=== PATIENT | female | born 1950 | race Caucasian/White ===

== ENCOUNTER 2018-04-07 12:50 | Inpatient (IN) | payer OTHER ==
[2018-04-07] MEDS: SOD CHLORIDE 0.9% 1,000 ML IV (13:37)
[2018-04-07] MEDS: ATROPINE 1 MG/10 ML SYRINGE IV (13:37)
[2018-04-07] MEDS: ASPIRIN 81 MG TAB PO (13:39)
[2018-04-07 13:40] LABS: ADD MAN DIFF? NO
[2018-04-07 13:44] LABS: WHITE BLOOD COUNT 7.1 10^3/ul (4.8-10.8)
[2018-04-07 13:44] LABS: BASOPHIL # 0.1 10^3/ul (0.0-0.1); BASOPHILS % 0.7 % (0.0-2.0); EOSINOPHILS # 0.2 10^3/ul (0.0-0.5); EOSINOPHILS % 3.2 % (0.0-7.0); HEMATOCRIT 42.7 % (37.0-47.0); HEMOGLOBIN 13.7 g/dl (12.0-16.0); LYMPHOCYTES # 3.9 10^3/ul (0.8-2.9); LYMPHOCYTES % 55.1 % (15.0-51.0); MEAN CORPUSCULAR HEMOGLOBIN 29.3 pg (29.0-33.0); MEAN CORPUSCULAR HGB CONC 32.1 g/dl (32.0-37.0); MEAN CORPUSCULAR VOLUME 91.2 fl (82.0-101.0); MEAN PLATELET VOLUME 9.5 fl (7.4-10.4); MONOCYTE # 0.6 10^3/ul (0.3-0.9); MONOCYTES % 8.2 % (0.0-11.0); NEUTROPHIL # 2.3 10^3/ul (1.6-7.5); NEUTROPHILS % 32.7 % (39.0-77.0); PLATELET COUNT 220 10^3/UL (140-415); RED BLOOD COUNT 4.68 10^6/ul (4.20-5.40); RED CELL DISTRIBUTION WIDTH 13.3 % (11.5-14.5)
[2018-04-07 14:03] LABS: INR 0.96; PROTIME 12.9 Sec (11.9-14.9)
[2018-04-07 14:04] LABS: PARTIAL THROMBOPLASTIN TIME 30.9 Sec (23.0-35.0)
[2018-04-07 14:22] LABS: ALANINE AMINOTRANSFERASE 20 IU/L (13-69); ALBUMIN 4.2 g/dl (3.3-4.9); ALBUMIN/GLOBULIN RATIO 1.27; ALKALINE PHOSPHATASE 121 IU/L (42-121); ANION GAP 8 (5-13); ASPARTATE AMINO TRANSFERASE 40 IU/L (15-46); BILIRUBIN,INDIRECT 1.1 mg/dl (0-1.1); BILIRUBIN,TOTAL 1.1 mg/dl (0.2-1.3); BLOOD UREA NITROGEN 15 mg/dl (7-20); CALCIUM 9.1 mg/dl (8.4-10.2); CARBON DIOXIDE 27 mmol/L (21-31); CHLORIDE 108 mmol/L (97-110); Estimated GFR > 60 mL/min (>60); GLUCOSE 94 mg/dl (70-220); LIPASE 99 U/L (23-300); SODIUM 143 mmol/L (135-144); TOTAL PROTEIN 7.5 g/dl (6.1-8.1)
[2018-04-07 14:31] LABS: B-TYPE NATRIURETIC PEPTIDE 1800 PG/ML (0-125)
[2018-04-07 14:34] LABS: TROPONIN-I < 0.012 ng/ml (0.000-0.120)
[2018-04-07] MEDS: KETOROLAC 15 MG INJ IV (14:34)
[2018-04-07] MEDS ORDERED: NACL 0.9% 3 ML SYG IV (15:30)
[2018-04-07] MEDS ORDERED: ONDANSETRON 4 MG INJ IV (15:30)
[2018-04-07] MEDS ORDERED: DOPamine-D5W 1.6 MG/ML 250 ML IV (16:00)
[2018-04-07 18:03] LABS: FREE T4 (FREE THYROXINE) 1.09 ng/dl (0.78-2.44)
[2018-04-07] MEDS ORDERED: HEPARIN 5,000 UNIT/0.5 ML VIAL (21:01)
[2018-04-07] MEDS: ATORVASTATIN 10 MG TAB PO (21:04)
[2018-04-07] MEDS: FAMOTIDINE 20 MG TAB PO (21:04)
[2018-04-07 21:07] LABS: TROPONIN-I 0.013 ng/ml (0.000-0.120)
[2018-04-07] MEDS: HEPARIN 5,000 UNIT/1 ML VIAL SC (21:48)
[2018-04-08 01:20] LABS: TROPONIN-I < 0.012 ng/ml (0.000-0.120)
[2018-04-08] MEDS ORDERED: HEPARIN 5,000 UNIT/0.5 ML VIAL ×2 (04:53→20:05)
[2018-04-08 05:22] LABS: ADD MAN DIFF? NO
[2018-04-08 05:28] LABS: BASOPHIL # 0.1 10^3/ul (0.0-0.1); BASOPHILS % 0.9 % (0.0-2.0); EOSINOPHILS # 0.4 10^3/ul (0.0-0.5); EOSINOPHILS % 6.6 % (0.0-7.0); HEMOGLOBIN 13.3 g/dl (12.0-16.0); LYMPHOCYTES # 3.3 10^3/ul (0.8-2.9); LYMPHOCYTES % 57.9 % (15.0-51.0); MEAN CORPUSCULAR HEMOGLOBIN 29.4 pg (29.0-33.0); MEAN CORPUSCULAR HGB CONC 32.4 g/dl (32.0-37.0); MEAN CORPUSCULAR VOLUME 90.7 fl (82.0-101.0); MEAN PLATELET VOLUME 9.7 fl (7.4-10.4); MONOCYTE # 0.4 10^3/ul (0.3-0.9); MONOCYTES % 7.6 % (0.0-11.0); NEUTROPHIL # 1.5 10^3/ul (1.6-7.5); NEUTROPHILS % 26.8 % (39.0-77.0); PLATELET COUNT 199 10^3/UL (140-415); RED BLOOD COUNT 4.52 10^6/ul (4.20-5.40); RED CELL DISTRIBUTION WIDTH 13.2 % (11.5-14.5)
[2018-04-08 05:28] LABS: WHITE BLOOD COUNT 5.6 10^3/ul (4.8-10.8)
[2018-04-08] MEDS: HEPARIN 5,000 UNIT/1 ML VIAL SC ×3 (05:48→21:38)
[2018-04-08 06:01] LABS: ALANINE AMINOTRANSFERASE 17 IU/L (13-69); ALBUMIN 3.6 g/dl (3.3-4.9); ALBUMIN/GLOBULIN RATIO 1.05; ALKALINE PHOSPHATASE 114 IU/L (42-121); ANION GAP 7 (5-13); ASPARTATE AMINO TRANSFERASE 27 IU/L (15-46); BLOOD UREA NITROGEN 17 mg/dl (7-20); CALCIUM 8.8 mg/dl (8.4-10.2); CARBON DIOXIDE 23 mmol/L (21-31); CHLORIDE 111 mmol/L (97-110); CHOL/HDL RATIO 6.8 RATIO; CHOLESTEROL 198 mg/dl (100-200); CREATININE 0.76 mg/dl (0.44-1.00); Estimated GFR > 60 mL/min (>60); GLUCOSE 108 mg/dl (70-220); HDL CHOLESTEROL 29 mg/dl (35-98); LDL CHOLESTEROL,CALCULATED 116 mg/dl; POTASSIUM 4.3 mmol/L (3.5-5.1); SODIUM 141 mmol/L (135-144); TRIGLYCERIDES 266 mg/dl (0-149)
[2018-04-08] MEDS: ASPIRIN 81 MG TAB PO (10:10)
[2018-04-08] MEDS: FUROSEMIDE 20 MG TAB PO (10:11)
[2018-04-08] MEDS: INFLUENZA VIRUS VACCINE 0.5 ML (DISPENSING) IM* (10:11)
[2018-04-08] MEDS: FAMOTIDINE 20 MG TAB PO ×2 (10:11→20:51)
[2018-04-08] MEDS: LOSARTAN 25 MG TAB PO (12:17)
[2018-04-08] MEDS ORDERED: BUPIVACAINE 0.5% (SDV) 30 ML INJ (15:18)
[2018-04-08] MEDS ORDERED: LIDOCAINE 2% (MDV) 20 ML INJ (15:18)
[2018-04-08] MEDS ORDERED: SOD CHLORIDE 0.9% 500 ML (15:18)
[2018-04-08] MEDS ORDERED: CEFAZOLIN 1 GM/50 ML (PMX) 100 ML IVPB (15:25)
[2018-04-08] MEDS ORDERED: FENTAnyl 50 MCG/ML VIAL IV ×2 (15:30→17:00)
[2018-04-08] MEDS ORDERED: ONDANSETRON 4 MG INJ IV ×2 (15:30→17:00)
[2018-04-08] MEDS ORDERED: MEPERIDINE 25 MG INJ IV ×2 (15:30→17:00)
[2018-04-08] MEDS ORDERED: HYDROmorphONE 1 MG/5 ML IV SYRINGE IV (15:30)
[2018-04-08] MEDS ORDERED: PROCHLORPERAZINE 10 MG INJ IV (15:30)
[2018-04-08] MEDS ORDERED: POLYMYXIN/BACITRACIN 1L IRRIG (15:38)
[2018-04-08] MEDS ORDERED: PROPOFOL 60 ML (15:39)
[2018-04-08] MEDS ORDERED: FENTAnyl 50 MCG/ML VIAL (15:39)
[2018-04-08] MEDS ORDERED: MIDAZOLAM 1 MG/ML 2 ML INJ (15:39)
[2018-04-08] MEDS: POLYMYXIN/BACITRACIN 1L IRRIG IRR (16:00)
[2018-04-08] MEDS ORDERED: DIPHENHYDRAMINE 50 MG INJ IV (17:00)
[2018-04-08] MEDS ORDERED: HYDROmorphONE 0.5 MG/0.5 ML SYG IV (17:00)
[2018-04-08] MEDS: DIPHENHYDRAMINE 50 MG INJ IV (17:18)
[2018-04-08] MEDS ORDERED: morphine 2 MG INJ IV (18:30)
[2018-04-08] MEDS: ATORVASTATIN 10 MG TAB PO (20:51)
[2018-04-08] MEDS: HYDROCODONE/APAP (5/325) TAB PO (20:52)
[2018-04-08] MEDS: CEFAZOLIN 1 GM/50 ML (PMX) 50 ML IVPB (21:07)
[2018-04-09] MEDS ORDERED: HEPARIN 5,000 UNIT/0.5 ML VIAL ×3 (05:14→22:09)
[2018-04-09] MEDS: CEFAZOLIN 1 GM/50 ML (PMX) 50 ML IVPB ×3 (05:39→22:15)
[2018-04-09 05:40] LABS: ADD MAN DIFF? NO
[2018-04-09 05:47] LABS: BASOPHILS % 0.4 % (0.0-2.0); EOSINOPHILS # 0.1 10^3/ul (0.0-0.5); EOSINOPHILS % 0.8 % (0.0-7.0); HEMATOCRIT 42.1 % (37.0-47.0); HEMOGLOBIN 13.7 g/dl (12.0-16.0); LYMPHOCYTES # 2.2 10^3/ul (0.8-2.9); LYMPHOCYTES % 24.4 % (15.0-51.0); MEAN CORPUSCULAR HEMOGLOBIN 29.1 pg (29.0-33.0); MEAN CORPUSCULAR HGB CONC 32.5 g/dl (32.0-37.0); MEAN CORPUSCULAR VOLUME 89.4 fl (82.0-101.0); MEAN PLATELET VOLUME 9.8 fl (7.4-10.4); MONOCYTE # 0.5 10^3/ul (0.3-0.9); NEUTROPHIL # 6.1 10^3/ul (1.6-7.5); NEUTROPHILS % 68.2 % (39.0-77.0); PLATELET COUNT 193 10^3/UL (140-415); RED BLOOD COUNT 4.71 10^6/ul (4.20-5.40); RED CELL DISTRIBUTION WIDTH 13.2 % (11.5-14.5)
[2018-04-09] MEDS: HEPARIN 5,000 UNIT/1 ML VIAL SC ×3 (06:01→22:18)
[2018-04-09 06:08] LABS: ANION GAP 10 (5-13); BLOOD UREA NITROGEN 17 mg/dl (7-20); CALCIUM 9.1 mg/dl (8.4-10.2); CARBON DIOXIDE 27 mmol/L (21-31); CHLORIDE 106 mmol/L (97-110); CREATININE 0.62 mg/dl (0.44-1.00); Estimated GFR > 60 mL/min (>60); GLUCOSE 104 mg/dl (70-220); POTASSIUM 3.8 mmol/L (3.5-5.1); SODIUM 143 mmol/L (135-144)
[2018-04-09] MEDS: ASPIRIN 81 MG TAB PO (09:13)
[2018-04-09] MEDS: FUROSEMIDE 20 MG TAB PO (09:14)
[2018-04-09] MEDS: LOSARTAN 25 MG TAB PO (09:14)
[2018-04-09] MEDS: ACETAMINOPHEN 325 MG TAB PO (09:14)
[2018-04-09] MEDS: FAMOTIDINE 20 MG TAB PO ×2 (09:15→20:31)
[2018-04-09] MEDS: HYDROCODONE/APAP (5/325) TAB PO (16:29)
[2018-04-09] MEDS: ATORVASTATIN 10 MG TAB PO (20:31)
[2018-04-10] MEDS: HYDROCODONE/APAP (5/325) TAB PO (04:34)
[2018-04-10] MEDS ORDERED: HEPARIN 5,000 UNIT/0.5 ML VIAL (05:22)
[2018-04-10 05:25] LABS: ADD MAN DIFF? NO
[2018-04-10 05:36] LABS: BASOPHILS % 0.4 % (0.0-2.0); EOSINOPHILS # 0.4 10^3/ul (0.0-0.5); HEMATOCRIT 43.7 % (37.0-47.0); HEMOGLOBIN 14.3 g/dl (12.0-16.0); LYMPHOCYTES # 3.9 10^3/ul (0.8-2.9); LYMPHOCYTES % 39.1 % (15.0-51.0); MEAN CORPUSCULAR HEMOGLOBIN 29.5 pg (29.0-33.0); MEAN CORPUSCULAR HGB CONC 32.7 g/dl (32.0-37.0); MEAN CORPUSCULAR VOLUME 90.1 fl (82.0-101.0); MEAN PLATELET VOLUME 9.7 fl (7.4-10.4); MONOCYTE # 0.8 10^3/ul (0.3-0.9); MONOCYTES % 7.5 % (0.0-11.0); NEUTROPHIL # 4.9 10^3/ul (1.6-7.5); NEUTROPHILS % 48.6 % (39.0-77.0); PLATELET COUNT 180 10^3/UL (140-415); RED BLOOD COUNT 4.85 10^6/ul (4.20-5.40); RED CELL DISTRIBUTION WIDTH 13.2 % (11.5-14.5)
[2018-04-10] MEDS: CEFAZOLIN 1 GM/50 ML (PMX) 50 ML IVPB (05:44)
[2018-04-10] MEDS: HEPARIN 5,000 UNIT/1 ML VIAL SC (05:48)
[2018-04-10 06:16] LABS: ANION GAP 10 (5-13); BLOOD UREA NITROGEN 20 mg/dl (7-20); CALCIUM 9.1 mg/dl (8.4-10.2); CARBON DIOXIDE 27 mmol/L (21-31); CHLORIDE 106 mmol/L (97-110); CREATININE 0.64 mg/dl (0.44-1.00); Estimated GFR > 60 mL/min (>60); GLUCOSE 107 mg/dl (70-220); MAGNESIUM 1.9 mg/dl (1.7-2.5); PHOSPHORUS 4.7 mg/dl (2.5-4.9); POTASSIUM 4.1 mmol/L (3.5-5.1); SODIUM 143 mmol/L (135-144)
[2018-04-10] MEDS: ASPIRIN 81 MG TAB PO (08:59)
[2018-04-10] MEDS: LOSARTAN 25 MG TAB PO (09:01)
[2018-04-10] MEDS: FAMOTIDINE 20 MG TAB PO (09:01)
[2018-04-10] MEDS: FUROSEMIDE 20 MG TAB PO (09:03)
== END 2018-04-10 14:46 | disposition home or self-care (01) | DRG 227 ==
LOC: 6WM 04-09 01:38 → E/R 12:50 → ICU 14:54
PROC: 0JH608Z Insertion of Defibrillator Generator into Chest Subcutaneous Tissue and Fascia, Open Approach (ICD-10-PCS; principal; 2018-04-08 15:34)
PROC: 02HK3KZ Insertion of Defibrillator Lead into Right Ventricle, Percutaneous Approach (ICD-10-PCS; 2018-04-08 15:34)
PROC: 02H63KZ Insertion of Defibrillator Lead into Right Atrium, Percutaneous Approach (ICD-10-PCS; 2018-04-08 15:34)
DX: I44.2 Atrioventricular block, complete (principal); I42.9 Cardiomyopathy, unspecified; I50.20 Unspecified systolic (congestive) heart failure; I11.0 Hypertensive heart disease with heart failure; E78.5 Hyperlipidemia, unspecified; M25.552 Pain in left hip; M25.551 Pain in right hip; I45.10 Unspecified right bundle-branch block; I44.1 Atrioventricular block, second degree; Z79.82 Long term (current) use of aspirin; Z98.61 Coronary angioplasty status
CPT/HCPCS: 33249; 36415; 71045; 72131; 72170; 72192; 80048; 80053; 80061; 83690; 83735; 83880; 84100; 84439; 84443; 84484; 85025; 85610; 85730; 87081; 90686; 93005; 93306; 96361; 96374; 96375; 97161; 99291-25

== ENCOUNTER 2018-04-25 15:47 | Inpatient (IN) | payer OTHER ==
[2018-04-25 16:14] LABS: ADD MAN DIFF? NO
[2018-04-25 16:16] LABS: WHITE BLOOD COUNT 9.7 10^3/ul (4.8-10.8)
[2018-04-25 16:16] LABS: BASOPHIL # 0.1 10^3/ul (0.0-0.1); BASOPHILS % 0.6 % (0.0-2.0); EOSINOPHILS # 0.2 10^3/ul (0.0-0.5); EOSINOPHILS % 1.6 % (0.0-7.0); HEMATOCRIT 43.4 % (37.0-47.0); HEMOGLOBIN 14.3 g/dl (12.0-16.0); LYMPHOCYTES # 4.5 10^3/ul (0.8-2.9); LYMPHOCYTES % 46.2 % (15.0-51.0); MEAN CORPUSCULAR HEMOGLOBIN 29.3 pg (29.0-33.0); MEAN CORPUSCULAR HGB CONC 32.9 g/dl (32.0-37.0); MEAN CORPUSCULAR VOLUME 88.9 fl (82.0-101.0); MEAN PLATELET VOLUME 8.8 fl (7.4-10.4); MONOCYTE # 0.6 10^3/ul (0.3-0.9); MONOCYTES % 6.1 % (0.0-11.0); NEUTROPHIL # 4.4 10^3/ul (1.6-7.5); NEUTROPHILS % 45.2 % (39.0-77.0); PLATELET COUNT 292 10^3/UL (140-415); RED BLOOD COUNT 4.88 10^6/ul (4.20-5.40)
[2018-04-25] MEDS: MAGNESIUM SULFATE 2 GM/50 ML 50 ML IVPB (16:17)
[2018-04-25 16:33] LABS: ANION GAP 11 (5-13); BLOOD UREA NITROGEN 24 mg/dl (7-20); CALCIUM 9.7 mg/dl (8.4-10.2); CARBON DIOXIDE 25 mmol/L (21-31); CHLORIDE 105 mmol/L (97-110); CREATININE 0.61 mg/dl (0.44-1.00); Estimated GFR > 60 mL/min (>60); GLUCOSE 103 mg/dl (70-220); POTASSIUM 4.4 mmol/L (3.5-5.1); SODIUM 141 mmol/L (135-144)
[2018-04-25 16:44] LABS: TROPONIN-I < 0.012 ng/ml (0.000-0.120)
[2018-04-25] MEDS ORDERED: DOCUSATE SODIUM 100 MG CAP PO (18:00)
[2018-04-25] MEDS ORDERED: ONDANSETRON 4 MG INJ IV (18:00)
[2018-04-25] MEDS ORDERED: MAGNESIUM HYDROXIDE 30ML CUP PO (18:00)
[2018-04-25] MEDS ORDERED: LORAZEPAM 2 MG INJ IV (18:00)
[2018-04-25] MEDS ORDERED: NACL 0.9% 3 ML SYG IV (18:00)
[2018-04-25] MEDS ORDERED: morphine 2 MG INJ IV (18:00)
[2018-04-25] MEDS ORDERED: ALBUTEROL/IPRATROPIUM (NEB) 3 ML AMP HHN (18:00)
[2018-04-25] MEDS ORDERED: ACETAMINOPHEN 325 MG TAB PO (18:00)
[2018-04-25] MEDS ORDERED: NITROGLYCERIN (SL) 0.4 MG TAB SL (18:00)
[2018-04-25] MEDS ORDERED: hydrALAzine 20 MG INJ IV (18:00)
[2018-04-25] MEDS ORDERED: NA PHOSPHATE/BIPHOS 133 ML ENEMA PR (18:00)
[2018-04-25 18:13] LABS: INR 0.97
[2018-04-25 18:14] LABS: PARTIAL THROMBOPLASTIN TIME 31.5 Sec (23.0-35.0)
[2018-04-25 18:19] LABS: HEMOGLOBIN A1C 5.3 % (0-5.9)
[2018-04-25 18:31] LABS: FREE T4 (FREE THYROXINE) 1.11 ng/dl (0.78-2.44)
[2018-04-25] MEDS: ATORVASTATIN 10 MG TAB PO (22:32)
[2018-04-25] MEDS: RANOLAZINE (SR) 500 MG TAB PO (22:34)
[2018-04-25] MEDS: SOD CHLORIDE 0.45% 1,000 ML IV (22:36)
[2018-04-25 22:50] LABS: CREATINE KINASE 62 IU/L (23-200)
[2018-04-25 23:02] LABS: CK INDEX 1.4; CK-MB 0.88 ng/ml (0.0-2.4); TROPONIN-I 0.015 ng/ml (0.000-0.120)
[2018-04-26] MEDS: HYDROCODONE/APAP (5/325) TAB PO (00:26)
[2018-04-26 05:15] LABS: ADD MAN DIFF? NO
[2018-04-26] MEDS: PANTOPRAZOLE (EC) 40 MG TAB PO (05:22)
[2018-04-26 05:23] LABS: BASOPHIL # 0.1 10^3/ul (0.0-0.1); BASOPHILS % 0.8 % (0.0-2.0); EOSINOPHILS # 0.2 10^3/ul (0.0-0.5); HEMATOCRIT 41.4 % (37.0-47.0); HEMOGLOBIN 13.5 g/dl (12.0-16.0); LYMPHOCYTES # 3.8 10^3/ul (0.8-2.9); LYMPHOCYTES % 49.8 % (15.0-51.0); MEAN CORPUSCULAR HEMOGLOBIN 29.4 pg (29.0-33.0); MEAN CORPUSCULAR HGB CONC 32.6 g/dl (32.0-37.0); MEAN CORPUSCULAR VOLUME 90.2 fl (82.0-101.0); MONOCYTE # 0.7 10^3/ul (0.3-0.9); MONOCYTES % 8.6 % (0.0-11.0); NEUTROPHIL # 2.9 10^3/ul (1.6-7.5); NEUTROPHILS % 37.7 % (39.0-77.0); PLATELET COUNT 291 10^3/UL (140-415); RED BLOOD COUNT 4.59 10^6/ul (4.20-5.40); RED CELL DISTRIBUTION WIDTH 13.2 % (11.5-14.5)
[2018-04-26 05:23] LABS: WHITE BLOOD COUNT 7.6 10^3/ul (4.8-10.8)
[2018-04-26 05:26] LABS: HEMOGLOBIN A1C 5.5 % (0-5.9)
[2018-04-26 06:10] LABS: CREATINE KINASE 51 IU/L (23-200)
[2018-04-26 06:13] LABS: ANION GAP 9 (5-13); BLOOD UREA NITROGEN 22 mg/dl (7-20); CALCIUM 9.1 mg/dl (8.4-10.2); CARBON DIOXIDE 26 mmol/L (21-31); CHLORIDE 106 mmol/L (97-110); CREATININE 0.66 mg/dl (0.44-1.00); Estimated GFR > 60 mL/min (>60); GLUCOSE 114 mg/dl (70-220); MAGNESIUM 2.3 mg/dl (1.7-2.5); POTASSIUM 4.4 mmol/L (3.5-5.1); SODIUM 141 mmol/L (135-144)
[2018-04-26 06:19] LABS: CK INDEX 1.4; TROPONIN-I < 0.012 ng/ml (0.000-0.120)
[2018-04-26 06:40] LABS: CHOLESTEROL 165 mg/dl (100-200)
[2018-04-26 06:40] LABS: CHOL/HDL RATIO 3.9 RATIO; HDL CHOLESTEROL 42 mg/dl (35-98); LDL CHOLESTEROL,CALCULATED 93 mg/dl; TRIGLYCERIDES 152 mg/dl (0-149)
[2018-04-26] MEDS: SOD CHLORIDE 0.45% 1,000 ML IV (07:06)
[2018-04-26] MEDS: SPIRONOLACTONE 25 MG TAB PO (09:00)
[2018-04-26] MEDS: LOSARTAN 25 MG TAB PO (09:00)
[2018-04-26] MEDS: FUROSEMIDE 20 MG TAB PO (09:00)
[2018-04-26] MEDS: RANOLAZINE (SR) 500 MG TAB PO (09:51)
[2018-04-26] MEDS: ESCITALOPRAM 10 MG TAB PO (09:53)
== END 2018-04-26 13:18 | disposition home or self-care (01) | DRG 315 ==
LOC: E/R 15:47 → ICU 17:30
DX: T82.198A Other mechanical complication of other cardiac electronic device, initial encounter (principal); I42.9 Cardiomyopathy, unspecified; I10 Essential (primary) hypertension; E78.5 Hyperlipidemia, unspecified
CPT/HCPCS: 36415; 71045; 80048; 80061; 82550; 82553; 83036; 83735; 84100; 84439; 84443; 84484; 85025; 85610; 85730; 87081; 93005; 99291-25